=== PATIENT | male | born 1950 | race Two or more races ===

== ENCOUNTER 2018-02-20 11:41 | Emergency (ER) | END 2018-02-20 13:49 | disposition home or self-care (01) ==

== ENCOUNTER 2018-06-19 00:47 | Emergency (ER) | payer OTHER ==
[~2018-06-19] VITALS: Ht 177.8 cm; Wt 70.0 kg
[~2018-06-19 00:47] MED LIST: ALEN70TA5 PO; AMLO5TAB4 PO; ATEN50TA PO; LEVO88TA42 PO; LISI10TA2 PO
[2018-06-19 00:50] VITALS: Ht 177.8 cm; Wt 70.0 kg
[2018-06-19] MEDS ORDERED: FAMOTIDINE 20 MG INJ IV STA (00:52)
[2018-06-19] MEDS ORDERED: ONDANSETRON 4 MG INJ IV STA (00:52)
[2018-06-19] MEDS ORDERED: LIDOCAINE/MYLANTA 40 ML BTL PO STA (00:52)
[2018-06-19] MEDS ORDERED: SOD CHLORIDE 0.9% 1,000 ML IV STA (00:52)
[2018-06-19] MEDS ORDERED: FENTAnyl 50 MCG/ML VIAL IV ONE (02:00)
--- NOTE | 2018-06-19 02:35 | ERD ---
ER Documentation Chief Complaint Chief Complaint CHAITANYA TOSCANO,from home,epigastric sharp pain,had cocktail drinks around 1700 HPI This is a 67-year-old male with a past medical history of hypertension, osteoporosis, hypothyroidism, gastritis for which he takes omeprazole daily who is presenting with progressive worsening epigastric tightness and burning wrapping around his left lower ribs and radiating into his throat. He does not endorse any specific chest pain. The patient has had muscle cramps in the past, and he reports that when the pain was wrapping around his left side and into his back, he thought that maybe it was a muscle spasm. The patient does not endorse shortness of breath. He has not had diaphoresis. When the pain was severe at home, the patient does report lightheadedness. The patient does report nausea with a few episodes of nonbilious nonbloody yellow vomiting. The patient does report having 3 mixed drinks at home this evening a few hours before onset of symptoms. The patient denies feeling sick recently. The patient denies fever or chills. The patient has had no headache or vision changes. The patient does not endorse neck or back pain. The patient denies changes to bowel movements or urination. He has not had any constipation or diarrhea. He has not had any black or bloody or tarry stools. He denies dysuria or hematuria or urgency or frequency. The patient has had no focal deficits. The patient has had no weakness or numbness or tingling to the face or extremities. ROS All systems reviewed and are negative except as per history of present illness. Medications Home Meds Reported Medications Alendronate Sodium* (Fosamax*) 70 Mg Tablet, 70 MG PO Q7D, #4 TAB 02/20/18 Atenolol* (Atenolol*) 50 Mg Tablet, 50 MG PO BID, #60 TAB 02/20/18 Levothyroxine Sodium* (Levoxyl*) 88 Mcg Tablet, 113 MCG PO BEFORE BREAKFAST, #30 TAB TAKING A 88MCG AND A 25MCG TOGETHER 02/20/18 Lisinopril* (Lisinopril*) 10 Mg Tablet, 10 MG PO DAILY, #30 TAB 02/20/18 Amlodipine Besylate* (Norvasc*) 5 Mg Tablet, 5 MG PO DAILY, TAB 02/20/18 Allergies Allergies: Coded Allergies: No Known Allergy (Unverified , 02/20/18) PMhx/Soc History of Surgery: Yes (appendectomy, cataracts mary jane, hernia repair) Anesthesia Reaction: No Hx Neurological Disorder: Yes (hx of seizures stopped meds x10 years, last sz 1993) Hx Respiratory Disorders: No Hx Cardiac Disorders: Yes (MVP, hypertension) Hx Psychiatric Problems: No Hx Miscellaneous Medical Probl: Yes (Gastritis, hypothyroidism) Hx Alcohol Use: Yes (2-3 drinks/night 3-4 nights/week) Hx Substance Use: No Hx Tobacco Use: Yes Smoking Status: Never smoker FmHx Family History: No diabetes Physical Exam Vitals Vital Signs Date Temp Pulse Resp B/P (MAP) Pulse Ox O2 O2 Flow FiO2 Time Delivery Rate 06/19/18 98.4 92 13 120/77 99 Room Air 02:12 (91) 06/19/18 98.4 81 13 103/64 99 Room Air 01:23 (77) 06/19/18 98.4 113 18 112/61 99 00:50 (78) Physical Exam Const: No apparent distress, well-developed, well-nourished Head: Normocephalic, Atraumatic Eyes: Normal Conjunctiva. Extraocular movements intact. Pupils equal, round and reactive to light ENT: Normal External Ears, Nose and Mouth. Neck: Full range of motion. No meningismus. Resp: Clear to auscultation bilaterally, No wheezes, rales or rhonchi Cardio: Regular rate and rhythm. No murmurs, rubs or gallops Abd: Soft, non distended. Mild epigastric tenderness. Normal bowel sounds Skin: No petechiae or rashes Back: No midline tenderness. No CVA tenderness Ext: No cyanosis, or edema Neur: Awake and alert, oriented 4. Cranial nerves intact. No facial droop. Normal strength, sensation and coordination. Psych: Normal Mood and Affect Result Diagram: 06/19/1811406/19/18114 Results 24 hrs Laboratory Tests Test 06/19/18 01:15 White Blood Count 11.9 10^3/ul Red Blood Count 4.03 10^6/ul Hemoglobin 15.1 g/dl Hematocrit 42.7 % Mean Corpuscular Volume 106.0 fl Mean Corpuscular Hemoglobin 37.5 pg Mean Corpuscular Hemoglobin Concent 35.4 g/dl Red Cell Distribution Width 12.5 % Platelet Count 200 10^3/UL Mean Platelet Volume 10.0 fl Immature Granulocytes % 0.500 % Neutrophils % 67.2 % Lymphocytes % 22.4 % Monocytes % 7.8 % Eosinophils % 1.3 % Basophils % 0.8 % Nucleated Red Blood Cells % 0.0 /100WBC Immature Granulocytes # 0.060 10^3/ul Neutrophils # 8.0 10^3/ul Lymphocytes # 2.7 10^3/ul Monocytes # 0.9 10^3/ul Eosinophils # 0.2 10^3/ul Basophils # 0.1 10^3/ul Nucleated Red Blood Cells # 0.0 10^3/ul Prothrombin Time 13.0 Sec Prothrombin Time Ratio 1.0 INR International Normalized Ratio 0.97 Sodium Level 135 mmol/L Potassium Level 3.9 mmol/L Chloride Level 97 mmol/L Carbon Dioxide Level 25 mmol/L Anion Gap 13 Blood Urea Nitrogen 7 mg/dl Creatinine 1.08 mg/dl Est Glomerular Filtrat Rate mL/min > 60 mL/min Glucose Level 149 mg/dl Calcium Level 9.4 mg/dl Total Bilirubin 0.3 mg/dl Direct Bilirubin 0.00 mg/dl Indirect Bilirubin 0.3 mg/dl Aspartate Amino Transf (AST/SGOT) 62 IU/L Alanine Aminotransferase (ALT/SGPT) 42 IU/L Alkaline Phosphatase 85 IU/L Troponin I < 0.012 ng/ml Total Protein 7.5 g/dl Albumin 3.8 g/dl Globulin 3.70 g/dl Albumin/Globulin Ratio 1.02 Lipase 205 U/L Current Medications Medications Dose Sig/Deann Start Time Status Last (Trade) Ordered Route PRN Stop Time Admin Dose Reason Admin Sodium 1,000 ml @ Q1H STAT 06/19/18 DC 06/19/18 Chloride 1,000 mls/hr IV 00:52 01:22 06/19/18 01:51 Ondansetron 4 mg ONCE STAT 06/19/18 DC 06/19/18 HCl (Zofran IV 00:52 01:22 Inj) 06/19/18 00:54 Famotidine 20 mg ONCE STAT 06/19/18 DC 06/19/18 (Pepcid Iv) IV 00:52 01:22 06/19/18 00:54 40 ml ONCE STAT 06/19/18 DC 06/19/18 Miscellaneous PO 00:52 01:22 Medication 06/19/18 00:54 (Gi Cocktail (2)) Fentanyl 50 mcg ONCE ONCE 06/19/18 DC 06/19/18 (Sublimaze) IV 02:00 02:11 06/19/18 02:01 Procedures/MDM MDM The patient's presentation warrants further investigation. Previous medical records, if available, were reviewed. LABS The patient's laboratory testing was obtained and reviewed. No emergent treatment was required unless described below. CBC: Mild leukocytosis without shift, likely reactive. Macrocytosis without anemia. Normal platelet count. Chemistry: No E/o severe acidosis or alkalosis or renal failure or liver disease or diabetic ketoacidosis Lipase: No E/o pancreatitis PT/INR: No E/o significant coagulopathy Troponin: No E/o acute ischemia EKG EKG read by me: Rate/Rhythm: Regular rate and rhythm at a rate of 90 bpm Intervals: Normal [place]: Normal Impression: Nonspecific repolarization changes without evidence of acute ischemia or arrhythmia IMAGING Imaging and Radiology interpretation reviewed. CXR 1V Interpreted by me Soft Tissue: No acute abnormalities Bones: No acute abnormalities Mediastinum/Cardiac Silhouette: Unremarkable. No widened mediastinum. Lungs: No acute abnormalities. Normal pulmonary vasculature. No pneumothorax. No pulmonary edema. Clear costal diaphragmatic angles. No pleural effusions. No opacity or consolidations concerning for pneumonia. TREATMENT/DISPOSITION The patient presents primarily for epigastric pain with nausea and vomiting. The patient does endorse a fairly significant history of alcohol use. He also has a history of gastritis. The patient was treated with IV fluids, Zofran, Pepcid and a GI cocktail with some improvement of his symptoms. The patient was also ultimately given a dose of fentanyl for pain control. The patient's ab dominal exam reveals mild suprapubic tenderness but is otherwise unremarkable. The patient does not have any evidence of peritonitis. The patient does not have clinical symptoms concerning for mesenteric ischemia or ischemic colitis. There is no air under the diaphragm on the chest x-ray. I have low suspicion for perforated viscus. The patient does not have right upper quadrant tenderness, and I have low suspicion for gallstones, cholecystitis or biliary colic. The patient does not have any epigastric pain. I have low suspicion for gastritis, PUD or GERD. The patient does not have left upper quadrant tenderness. I have low suspicion for pancreatitis. The patient does not have any right lower quadrant tenderness, or periumbilical tenderness. I have low suspicion for appendicitis. The patient does not have suprapubic tenderness. I have decreased suspicion for cystitis. The patient does not have any left lower quadrant tenderness, and I have low suspicion for diverticulosis or diverticulitis. The patient does not have any flank tenderness. The patient does not have gross hematuria. I have decreased suspicion for nephrolithiasis or renal colic. The patient does not have any palpable pulsatile mass or severe abdominal pain radiating to the back. I have low suspicion for aortic aneurysm, dissection or rupture. Given the patient's age and history of hypertension, a cardiac workup was also completed. The patient's chest xray does not reveal pneumonia or pneumothorax or pleural effusions or pulmonary edema. The patient does not have a widened mediastinum and does not have signs or symptoms concerning for thoracic aortic aneurysm or dissection. The patient does not have pneumomediastinum or signs concerning for esophageal tear or rupture. The patient has no clinical or radiographic signs of pericardial effusion or tamponade. The patient does not have pneumoperitoneum and I have decreased suspicion of viscus perforation as possible referred pain. The patient does not have a history of heart failure and I have low suspicion for this. The patient does not have a diagnosis of COPD and is not wheezing today. The patient is not tachypneic or hypoxic. The patient is breathing comfortably and without pleuritic pain. The patient is not on hormonal therapy. The patient has no history of clotting or bleeding disorders. The patient has no calf tenderness. The patient has had no hemoptysis. I have decreased suspicion for PE. The patient's troponin and EKG are reassuring. I have low suspicion for acute coronary syndrome. Upon reevaluation of the patient, symptoms have improved. No emergent diagnoses were identified. At this time, I feel that the patient stable for discharge. The patient was instructed to follow-up with a primary care physician in 1-3 days. The patient will be given strict precautions with which to return to the emergency department. Prescriptions: Vince Sweet Disclaimer: Inadvertent spelling and grammatical errors are likely due to EHR/dictation software use and do not reflect on the overall quality of patient care. Note that the electronic time recorded on this note does not necessarily reflect the actual time of the patient encounter. Departure Diagnosis: Primary Impression: Epigastric pain Additional Impressions: Nausea & vomiting Vomiting type: unspecified Vomiting Intractability: non-intractable Qualified Codes: R11.2 - Nausea with vomiting, unspecified Leukocytosis Leukocytosis type: unspecified Qualified Codes: D72.829 - Elevated white blood cell count, unspecified Macrocytosis without anemia Condition: Stable DAVIDSON DANGELO MD Jun 19, 2018 02:32
[2018-06-19 02:36] VITALS: BP 133/74; PULSE 86; RESP 17
[2018-06-19] MEDS ORDERED: ONDA4TAB8 PO (02:36)
[2018-06-19] MEDS ORDERED: FAMO-96 PO (02:36)
== END 2018-06-19 03:32 | disposition home or self-care (01) ==
LOC: E/R 00:47
DX: R10.13 Epigastric pain (principal); R11.2 Nausea with vomiting, unspecified; D72.829 Elevated white blood cell count, unspecified; D75.89 Other specified diseases of blood and blood-forming organs; E03.9 Hypothyroidism, unspecified; I10 Essential (primary) hypertension; Z87.891 Personal history of nicotine dependence
CPT/HCPCS: 36415; 71045; 80053; 83690; 84484; 85025; 85610; 93005; 96374; 96375; 99285; J2405; J3010; J7030